=== PATIENT | female | born 1975 | race Caucasian/White ===

== ENCOUNTER 2018-07-14 16:53 | Emergency (ER) | payer OTHER, BC ==
[2018-07-14 18:12] LABS: Absolute Lymphocytes (CBC) 1.1 K/uL (0.7-4.9); Absolute Monocytes 0.6 K/uL (0.1-1.3); Absolute Neutrophil 4.5 K/uL (1.8-8.0); Basophils % 0.5 % (0-1.3); Eosinophils % 1.6 % (0-4.4); Hematocrit 40.8 % (36.0-45.0); Lymphocytes % 16.7 % (15.3-44.8); MPV 8.5 fL (7.6-11.3); Monocytes % 9.1 % (3.3-12.3); RBC Red Blood Cell Count 4.64 M/uL (3.86-4.86)
[2018-07-14] MEDS ORDERED: ONDANSETRON 4 MG/2 ML VIAL ONE (18:23)
[2018-07-14] MEDS ORDERED: FAMOTIDINE 20 MG/2 ML VIAL IV ONE (18:24)
[2018-07-14 18:30] LABS: Albumin 3.8 g/dL (3.4-5.0); Bilirubin Direct 0.1 mg/dL (0-0.2); Bilirubin Total 0.5 mg/dL (0.2-1.0); Magnesium 1.8 mg/dL (1.8-2.4); Potassium 3.3 mmol/L (3.5-5.1); Protein, Total 7.2 g/dL (6.4-8.2)
--- NOTE | 2018-07-14 18:45 | RAD REPORT ---
EXAM DESCRIPTION: RAD - Chest Pa And Lat (2 Views) - 07/14/2018 6:40 pm CLINICAL HISTORY: COUGH Chest pain. COMPARISON: Chest Pa And Lat (2 Views) dated 04/04/2017 FINDINGS: The lungs are clear. The heart is normal in size. No displaced fractures. IMPRESSION: No acute or concerning finding suspected.
--- NOTE | 2018-07-14 19:46 | ER ---
Nurse's Notes [facility] Name: Marlene Estrada Age: 42 yrs Sex: Female : 1975 Arrival Date: 07/14/2018 Time: 16:59 Bed 15 Private MD: Sonny Mora B Diagnosis: Nausea and vomiting;Diarrhea, unspecified;Cough Presentation: 07/14 17:11 Presenting complaint: Patient states: "I've been on antibiotics for about a week for aa5 bronchitis and for the last 24 hours I've been having diarrhea and vomiting". Transition of care: patient was not received from another setting of care. Onset of symptoms was July 13, 2018. Risk Assessment: Do you want to hurt yourself or someone else? Patient reports no desire to harm self or others. Initial Sepsis Screen: Does the patient meet any 2 criteria? No. Patient's initial sepsis screen is negative. Does the patient have a suspected source of infection? No. Patient's initial sepsis screen is negative. Care prior to arrival: None. 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 - Social history:: Smoking status: Patient/guardian denies using tobacco. - Ebola Screening: : No symptoms or risks identified at this time. Screenin:15 Abuse screen: Denies threats or abuse. Denies injuries from another. Nutritional bp screening: No deficits noted. Tuberculosis screening: No symptoms or risk factors identified. Fall Risk None identified. Assessment: 17:15 General: Appears in no apparent distress. comfortable, obese, Behavior is cooperative, bp appropriate for age, anxious. Pain: Denies pain. Neuro: Level of Consciousness is awake, alert, obeys commands, Oriented to person, place, time, situation, Appropriate for age. Cardiovascular: No deficits noted. Respiratory: Airway is patent Respiratory effort is even, unlabored, Respiratory pattern is regular, symmetrical. GI: Abdomen is non-distended, Bowel sounds hyperactive in abdomen diffusely. GI: Reports diarrhea, nausea. : No signs and/or symptoms were reported regarding the genitourinary system. EENT: No deficits noted. Derm: No deficits noted. Musculoskeletal: Circulation, motion, and sensation intact. Range of motion: intact in all extremities. 18:30 Reassessment: UOP AND FECAL SPECIMEN PENDING, VS STABLE ON MONITOR. bp 19:15 Reassessment: Patient appears in no apparent distress at this time. Patient and/or cc3 family updated on plan of care and expected duration. Pain level reassessed. Patient is alert, oriented x 3, equal unlabored respirations, skin warm/dry/pink. Received this female patient from morning shift RN Mohan as a case of vomiting, diarrhea. With IV cannula gauge 22 at the left ACV saline locked. 20:40 Reassessment: Patient appears in no apparent distress at this time. Patient and/or cc3 family updated on plan of care and expected duration. Pain level reassessed. Patient is alert, oriented x 3, equal unlabored respirations, skin warm/dry/pink. TERESO Choudhury discharged the patient home with prescription given. IV cannula removed and patient left ER vitally stable and ambulatory with her family. Patient denies pain at this time. Patient states feeling better. Patient states symptoms have improved. Vital Signs: 17:12 BP 130 / 75; Pulse 107; Resp 18 S; Temp 99.5(O); Pulse Ox 97% on R/A; Weight 92.99 kg aa5 (R); Height 5 ft. 3 in. (160.02 cm) (R); Pain 0/10; 18:30 BP 118 / 66; Pulse 91; Resp 14; Pulse Ox 98% ; bp 19:30 BP 122 / 61; Pulse 99; Resp 18 S; Pulse Ox 98% on R/A; cc3 20:18 BP 115 / 63; Pulse 93; Resp 18 S; Pulse Ox 98% on R/A; cc3 17:12 Body Mass Index 36.31 (92.99 kg, 160.02 cm) aa5 ED Course: 16:59 Patient arrived in ED. mr 16:59 Sonny Mora MD is Private Physician. mr 17:11 Arm band placed on. aa5 17:12 Triage completed. aa5 17:14 Charlie Choudhury PA is PHCP. cp 17:14 Shon Beckford MD is Attending Physician. cp 17:14 Mohan Mandel, RN is Primary Nurse. bp 17:15 Patient has correct armband on for positive identification. Bed in low position. Call bp light in reach. Side rails up X2. Adult w/ patient. 17:56 Radiology exam delayed due to IV insertion attempt and/or patient not having az appropriate IV at this time. 18:04 Initial lab(s) drawn, by mi, sent to lab. Inserted saline lock: 22 gauge in left hj antecubital area, using aseptic technique. Blood collected. 18:05 Lipase Sent. hj 18:05 Hepatic Function Sent. hj 18:05 Creatinine for Radiology Sent. hj 18:05 CBC with Diff Sent. hj 18:05 Basic Metabolic Panel Sent. hj 18:05 Influenza Screen (a \\T\\ B) Sent. hj 18:05 Magnesium Sent. hj 18:40 XRAY Chest Pa And Lat (2 Views): cough since May In Process Unspecified. EDMS 19:43 Urine collected: clean catch specimen, tea colored, stool collected and sent at 1926. ag4 19:46 Stool Culture Sent. ag4 20:40 No provider procedures requiring assistance completed. IV discontinued, intact, cc3 bleeding controlled, No redness/swelling at site. Pressure dressing applied. Administered Medications: 18:30 Drug: Zofran 4 mg Route: IVP; Site: left antecubital; bp 19:06 Follow up: Response: No adverse reaction bp 18:30 Drug: Pepcid 20 mg Route: IVP; Site: left antecubital; bp 19:06 Follow up: Response: No adverse reaction bp 20:25 Drug: Potassium Effervescent Tablet 50 mEq Route: PO; cc3 20:40 Follow up: Response: No adverse reaction cc3 Outcome: 19:46 Discharge ordered by . cp 20:40 Discharged to home ambulatory, with family. cc3 20:40 Condition: stable 20:40 Discharge instructions given to patient, family, Instructed on discharge instructions, follow up and referral plans. medication usage, Demonstrated understanding of instructions, follow-up care, medications, Prescriptions given X 1. 20:52 Patient left the ED. cc3 Signatures: Dispatcher [facility] Abdi Frida Alysha Jordan, RN RN aa5 Juan David Ramirez RN RN hj Charlie Choudhury, TERESO Mohan Torres cp, RN RN bp Kiara Sky cc3 Kelly King, Basil ag4
--- NOTE | 2018-07-14 19:46 | EDPHYS ---
Physician Documentation [facility] Name: Marlene Estrada Age: 42 yrs Sex: Female : 1975 Arrival Date: 07/14/2018 Time: 16:59 Bed 15 Private MD: Sonny Mora B ED Physician Shon Beckford HPI: 07/14 17:56 This 42 yrs old Female presents to ER via Ambulatory with complaints of cp Vomiting/Diarrhea. 17:56 The patient presents to the emergency department with vomiting, that is continuous, cp diarrhea, that is continuous. Onset: The symptoms/episode began/occurred yesterday. 18:00 Possible causes: antibiotics, cephalosporin. cp 18:00 Associated signs and symptoms: Pertinent positives: anorexia, Pertinent negatives: cp abdominal pain, dysuria, fever, GI bleeding. Severity of symptoms: in the emergency department the symptoms are unchanged despite home interventions. 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 - Social history:: Smoking status: Patient/guardian denies using tobacco. - Ebola Screening: : No symptoms or risks identified at this time. ROS: 18:00 Constitutional: Positive for poor PO intake, Negative for body aches, chills, fever. cp 18:00 Eyes: Negative for injury, pain, redness, and discharge. cp 18:00 ENT: Negative for drainage from ear(s), ear pain, sore throat, difficulty swallowing, difficulty handling secretions. 18:00 Cardiovascular: Negative for chest pain, edema, palpitations. 18:00 Respiratory: Negative for cough, shortness of breath, wheezing. 18:00 Abdomen/GI: Positive for nausea, vomiting, and diarrhea, Negative for abdominal pain, constipation, black/tarry stool, rectal bleeding. 18:00 Skin: Negative for cellulitis, rash. 18:00 Neuro: Negative for altered mental status, headache, weakness. 18:00 All other systems are negative. Exam: 18:05 Constitutional: The patient appears in no acute distress, alert, awake, cp non-diaphoretic, non-toxic, well developed, well groomed. 18:05 Head/Face: Normocephalic, atraumatic. cp 18:05 Eyes: Periorbital structures: appear normal, Pupils: equal, round, and reactive to light and accomodation, Extraocular movements: intact throughout, Conjunctiva: normal, no exudate, no injection, Sclera: no appreciated abnormality, Lids and lashes: appear normal, bilaterally. 18:05 ENT: External ear(s): are unremarkable, Ear canal(s): are normal, clear, TM's: bulging, is not appreciated, bilaterally, erythema, is not appreciated, bilaterally, Nose: is normal, Mouth: Lips: moist, Oral mucosa: pink and intact, moist, Posterior pharynx: is normal, airway is patent, no erythema, no exudate. 18:05 Chest/axilla: Inspection: normal, Palpation: is normal, no crepitus, no tenderness. 18:05 Cardiovascular: Rate: tachycardic, Rhythm: regular. 18:05 Respiratory: the patient does not display signs of respiratory distress, Respirations: normal, no use of accessory muscles, no retractions, no splinting, no tachypnea, labored breathing, is not present, Breath sounds: are clear throughout, no decreased breath sounds, no stridor, no wheezing. 18:05 Abdomen/GI: Inspection: abdomen appears normal, Bowel sounds: active, all quadrants, Palpation: abdomen is soft and non-tender, in all quadrants, rebound tenderness, is not appreciated, voluntary guarding, is not appreciated, involuntary guarding, is not appreciated. 18:05 Back: pain, is absent, ROM is normal. 18:05 Skin: cellulitis, is not appreciated, no rash present. 18:05 Neuro: Orientation: to person, place \T\ time. Mentation: is normal, Motor: moves all fours, strength is normal, Sensation: is normal. Vital Signs: 17:12 BP 130 / 75; Pulse 107; Resp 18 S; Temp 99.5(O); Pulse Ox 97% on R/A; Weight 92.99 kg aa5 (R); Height 5 ft. 3 in. (160.02 cm) (R); Pain 0/10; 18:30 BP 118 / 66; Pulse 91; Resp 14; Pulse Ox 98% ; bp 19:30 BP 122 / 61; Pulse 99; Resp 18 S; Pulse Ox 98% on R/A; cc3 20:18 BP 115 / 63; Pulse 93; Resp 18 S; Pulse Ox 98% on R/A; cc3 17:12 Body Mass Index 36.31 (92.99 kg, 160.02 cm) aa5 MDM: 17:14 Patient medically screened. 19:45 Data reviewed: vital signs, nurses notes, lab test result(s), radiologic studies, plain cp films. 19:45 Differential diagnosis: Nonspecific abd pain, gastritis, diverticulitis, viral cp gastroenteritis, gastroenteritis. Test interpretation: by ED physician or midlevel provider: plain radiologic studies. Counseling: I had a detailed discussion with the patient and/or guardian regarding: the historical points, exam findings, and any diagnostic results supporting the discharge/admit diagnosis, lab results, radiology results, to return to the emergency department if symptoms worsen or persist or if there are any questions or concerns that arise at home. Response to treatment: the patient's symptoms have markedly improved after treatment, VSS. Nausea improved and vomiting resolved. Will discharge to home for continued monitoring. 07/14 17:42 Order name: Basic Metabolic Panel; Complete Time: 19:15 07/14 19:16 Interpretation: Normal except: K 3.3; CL 109; GFR 83; CA 8.4. 07/14 17:42 Order name: CBC with Diff; Complete Time: 19:15 07/14 17:42 Order name: Creatinine for Radiology; Complete Time: 19:15 07/14 17:42 Order name: Hepatic Function; Complete Time: 19:15 07/14 17:42 Order name: Lipase; Complete Time: 19:15 07/14 17:42 Order name: Magnesium; Complete Time: 19:15 07/14 17:42 Order name: Influenza Screen (a \T\ B); Complete Time: 19:15 07/14 19:43 Interpretation: Reviewed. 07/14 17:42 Order name: XRAY Chest Pa And Lat (2 Views): cough since May; Complete Time: 19:15 07/14 17:57 Order name: Stool Culture 07/14 17:57 Order name: CDIFF 07/14 19:48 Order name: Urine Dipstick--Ancillary (enter results) 2 07/14 20:31 Order name: Urine --Ancillary (enter results) ag4 07/14 17:42 Order name: IV Saline Lock; Complete Time: 18:05 cp 07/14 17:42 Order name: Labs collected and sent; Complete Time: 18:05 cp 07/14 17:42 Order name: Urine Dipstick-Ancillary (obtain specimen); Complete Time: 20:26 cp 07/14 17:42 Order name: Urine Test (obtain specimen); Complete Time: 20:34 cp Administered Medications: 18:30 Drug: Zofran 4 mg Route: IVP; Site: left antecubital; bp 19:06 Follow up: Response: No adverse reaction bp 18:30 Drug: Pepcid 20 mg Route: IVP; Site: left antecubital; bp 19:06 Follow up: Response: No adverse reaction bp 20:25 Drug: Potassium Effervescent Tablet 50 mEq Route: PO; cc3 20:40 Follow up: Response: No adverse reaction cc3 Disposition: 07/14/18 19:46 Discharged to Home. Impression: Nausea and vomiting, Diarrhea, unspecified, Cough. - Condition is Stable. - Discharge Instructions: Food Choices to Help Relieve Diarrhea, Adult, Diarrhea, Adult, Nausea and Vomiting, Adult, Cough, Adult. - Prescriptions for Zofran 4 mg Oral Tablet - take 1 tablet by ORAL route every 12 hours As needed; 20 tablet. - Medication Reconciliation Form, Thank You Letter, Antibiotic Education, Prescription Opioid Use form. - Follow up: Private Physician; When: 2 - 3 days; Reason: Recheck today's complaints. - Problem is new. - Symptoms have improved. - Notes: stop antibiotic Addendum: 07/18/2018 19:07 Co-signature as Attending Physician, Shon Beckford MD. m a2 Signatures: Dispatcher [employer] EDMS Alysha Doran RN RN aa5 Charlie Choudhury PA PA Mohan Perla RN RN Shon Salazar MD MD ma2 Kiara Sky cc3 Corrections: (The following items were deleted from the chart) 07/14 19:16 19:15 Normal except: K 3.3; CL 109; GFR 83. cp cp 20:52 19:46 07/14/2018 19:46 Discharged to Home. Impression: Nausea and vomiting; Diarrhea, cc3 unspecified; Cough. Condition is Stable. Forms are Medication Reconciliation Form, Thank You Letter, Antibiotic Education, Prescription Opioid Use. Follow up: Private Physician; When: 2 - 3 days; Reason: Recheck today's complaints. Problem is new. Symptoms have improved. cp
[2018-07-14 19:51] LABS: Urine Blood 2+ (NEG); Urine Glucose NEGATIVE (NEG); Urine Protein NEGATIVE (NEG); Urine Specific Gravity 1.025 (1.005-1.030)
[2018-07-14] MEDS ORDERED: POTASSIUM 25 MEQ EFFERV TAB ONE (20:34)
[2018-07-14 21:23] LABS: Urine Specific Gravity 1.025 (1.005-1.030)
== END 2018-07-14 20:52 | disposition home or self-care (01) ==
LOC: ER 16:53
DX: R19.7 Diarrhea, unspecified (principal); R05 Cough
CPT/HCPCS: 36415; 71046; 80048; 80076; 81003; 81025; 83690; 83735; 85025; 87045; 87046; 87493; 87804; 96374; 96375; 99284; J2405

== ENCOUNTER 2020-10-02 14:40 | Emergency (ER) | payer BC ==
--- OUTSIDE RECORDS SUMMARY | 2020-10-02 14:43 | XMS REPORT | Continuity of Care Document ---
:1975 Author Organization [facility] t Address [address] [place] [address] Care Team Providers Name Role Phone Ranjit Marrero MD Attending Clinician Nilsa Mukherjee MA Attending Clinician Unavailable Ke FAIRBANKS, Alva Attending Clinician Unavailable RANJIT MARRERO Attending Clinician Unavailable Sapphire Attending Clinician Unavailable Therapy, Covid Infusion Attending Clinician Unavailable Payers Payer Name Policy Type Policy Effective Date Expiration Date Sour ce Number BLUE CROSS/BLUE [id number] [facility] Medical POS EPO Center [id number] [phone], [place] [address]LJG Problems This patient has no known problems. Allergies, Adverse Reactions, Alerts This patient has no known allergies or adverse reactions. Family History Family Member Diagnosis Comments Start Date Stop Date Source Natural father Autoimmune disease [facility] Natural father Diabetes [facility] Natural father Hypertension [facility] Natural father Thyroid disease [facility] Natural mother Diabetes [facility] Natural mother Hypertension [facility] Natural sister Breast cancer [facility] Social History Social Habit Start Date Stop Date Quantity Comments [facility] Binge Medical [address] Sex Assigned At [facility] Alcohol intake 2020-09-06 2020-09-06 Lifetime [facility] Uvaldo es - 00:00:00 00:00:00 non-drinker Medical Brown arriaza (finding) History SDOH 2020-09-06 2020-09-06 [address] [facility] [address] kes - Alcohol Frequency 00:00:00 00:00:00 Medical Bedias Smoking Status Start Date Stop Date Source Never smoker [facility] M edical Bedias Medications Ordered Filled Start Stop Current Ordering Indication Dosage Frequency Signature Comments Components Source Medication Medication Date Date Medication? Clinician (SIG) Name Name thyroid,por Yes 105mg QD Take [address] (ARMOUR 4-06 mg by [facility] - THYROID 14:11: mouth Medical ORAL) 13 daily. Bedias vitamin Yes QD Take by [facility] St D3-folic 4-06 mouth [facility] - acid 5,000 14:11: daily. Medic al unit- 1 mg 13 Center Tab mv-mn/iron/ Yes 44880V QD Take [facility] St folic 4-06 50,000 [facility] - acid/herb 14:11: Units by Medi tianna 190 13 mouth Center (VITAMIN D3 daily. COMPLETE ORAL) aspirin 81 Yes 81mg QD Take [address] MG EC 4-06 by mouth [facility] - tablet 14:11: daily. Medical [address] [place] [address] [address] [facility] [address] (TOPAMAX) 4-03 [facility] - 50 MG 00:00: Medical tablet 00 Center Vital Signs Vital Name Observation Time Observation Value Comments Source Systolic blood 2020-09-06 14:02:00 130 mm[Hg] [facility] Diastolic blood 2020-09-06 14:02:00 84 mm[Hg] [facility] S t [facility] Heart rate 2020-09-06 14:02:00 97 /min [facility] Body temperature 2020-09-06 14:02:00 36.22 Audra [facility] Respiratory rate 2020-09-06 14:02:00 18 /min [facility] Body height 2020-09-06 14:02:00 160 cm [facility] Body weight 2020-09-06 14:02:00 107.775 kg [facility] BMI 2020-09-06 14:02:00 42.09 kg/m2 [facility] Oxygen saturation in 2020-09-06 14:02:00 96 /min [facility] Arterial blood by Medical Ce ntaudi Pulse oximetry Procedures Procedure Date / Time Performing Clinician Source Performed BASIC METABOLIC PANEL (7) 2020-09-26 12:48:00 Zachariah Marrero [facility] HEPATIC FUNCTION PANEL 2020-09-26 12:48:00 Zachariah Marrero [facility] PROTHROMBIN TIME/INR 2020-09-26 12:48:00 Zachariah Marrero [facility] CBC W/PLT COUNT & AUTO 2020-09-26 12:48:[address] [facility] MR ABDOMEN WITH & WITHOUT 2020-09-26 11:16:00 Zachariah Marrero [facility] HEPATIC FUNCTION PANEL 2020-09-19 16:14:00 Zachariah Marrero [facility] PROTHROMBIN TIME/INR 2020-09-19 16:14:00 Zachariah Marrero [facility] CBC W/PLT COUNT & AUTO 2020-09-19 16:14:[address] [facility] BASIC METABOLIC PANEL (7) 2020-09-19 16:14:00 Zachariah Marrero [facility] PROTHROMBIN TIME/INR 2020-09-12 15:48:00 Zachariah Marrero [facility] BASIC METABOLIC PANEL (7) 2020-09-12 15:48:00 Zachariah Marrero [facility] HEPATIC FUNCTION PANEL 2020-09-12 15:48:00 Zachariah Marrero [facility] CBC W/PLT COUNT & AUTO 2020-09-12 15:48:[address] [facility] CBC W/PLT COUNT & AUTO 2020-09-06 15:54:[address] [facility] COMPREHENSIVE METABOLIC 2020-09-06 15:54:[address] [facility] PANEL [facility] BILIRUBIN, DIRECT 2020-09-06 15:54:00 Zachariah Marrero [facility] PROTHROMBIN TIME/INR 2020-09-06 15:54:00 Zachariah Marrero [facility] HEPATITIS A ANTIBODY, IGG 2020-09-06 15:54:00 Zachariah Marrero [facility] HEPATITIS B SURFACE 2020-09-06 15:54:[address] [facility] ANTIGEN [facility] HEPATITIS B SURFACE 2020-09-06 15:54:00 Zachariah Marrero [facility] ANTIBODY [facility] HEPATITIS B CORE ANTIBODY, 2020-09-06 15:54:00 Zachariah Marrero [facility] TOTAL [facility] HEPATITIS C ANTIBODY 2020-09-06 15:54:00 Zachariah Marrero [facility] IRON, TIBC, % SAT. 2020-09-06 15:54:00 Zachariah Marrero [facility] 2020-09-06 15:54:00 Zachariah Marrero [facility] [id number]-[id number]\, 2020-09-06 15:54:00 Zachariah Marrero [facility] CERULOPLASMIN 2020-09-06 15:54:00 Zachariah Marrero [facility] ANTI-NUCLEAR ANTIBODY 2020-09-06 15:54:[address] [facility] (LUIS) [facility] ACTIN (SMOOTH MUSCLE) 2020-09-06 15:54:[address] [facility] - ANTIBODY, IGG [facility] MITOCHONDRIA M2 ANTIBODY 2020-09-06 15:54:00 Zachariah Marrero [facility] (IGG) [facility] IMMUNOGLOBULIN G (IGG) 2020-09-06 15:54:00 Zachariah Marrero [facility] SOLUBLE LIVER ANTIGEN 2020-09-06 15:54:00 Zach[address] Marrero [facility] ([facility]) [facility] LIVER-KIDNEY MICROSOME AB 2020-09-06 15:54:00 Zachariah Marrero [facility] LUIS TITER AND PATTERN 2020-09-06 15:54:00 Zachariah Marrero [facility] Plan of Care Planned Activity Planned Date Details Comments Source Future Scheduled Test 2021-02-01 INFLUENZA VACCINE C [facility] - 00:00:00 (Season Ended) [code Medical Center = INFLUENZA VACCINE (Season Ended)] Future Scheduled Test 2020-06-03 DEPRESSION SCREENING [facility] - 00:00:00 (12+) [code = [facility] DEPRESSION SCREENING (12+)] Future Scheduled Test 2018 Lipid panel [facility] - 00:00:00 (procedure) [code = [facility] 89507338] Future Scheduled Test 1994 Screening for [facility] - 00:00:00 malignant neoplasm Medical C enter of cervix (procedure) [code = 677374758] Future Scheduled Test 1992 DTAP/TDAP/TD [facility] - 00:00:00 VACCINES (1 - Tdap) [facility] [code = DTAP/TDAP/TD VACCINES (1 - Tdap)] Future Appointment 2020-10-14 Zachariah Marrero MD, [facility] S t [facility] - 10:30:00 [address] [facility] [address], [place] [address] Encounters Start End Encounter Admission Attending Care Care Encounter Source Date/Time Date/Time Type Type Clinicians Facility Department ID 2020-06-29 2020-06-29 Nurse Therapy, [facility] [id number] 10:06:52 18:57:28 Visit [facility] Covid SPECIALTY [id number] Infusion CARE [id number] CENTER AT [id number] [facility] Results Test Description Test Time Test Comments Results Result Comments Source Basic Metabolic Panel 2020-09-27 03:50:00 Test Item Value Reference Range Interpretation Comme nts Glucose (test code = 97 mg/dL 65-139 Non-fasting ) reference inter teresa BUN (test code = 9 mg/dL 7-25 20101004) Creatinine (test code = 0.58 mg/dL 0.5-1.1 20130727) eGFR If NonAfricn Am 110 See_Comment [Autom ated message] (test code = ) The sy stem which generated this result transmitted ref erence range: > OR = 6 0 mL/min/1.73m2. The reference range was not used to interpr et this result as normal/abnormal . eGFR If Africn Am (test 127 See_Comment [Au tomated message] code = ) The system w hich generated this result transmitted ref erence range: > OR = 6 0 mL/min/1.73m2. The reference range was not used to interpr et this result as normal/abnormal . BUN/Creatinine Ratio NOT APPLICABLE See_Comment [Aut omated message] (test code = ) The sy stem which generated this result transmitted ref erence range: 6 - 22 ( calc). The reference r chris was not used to int erpret this result as normal/abnormal . Sodium (test code = 138 mmol/L 135-841 3755580) Potassium, Serum (test 3.9 mmol/L 3.5-5.3 code = 20101019) Chloride (test code = 106 mmol/L 98-306 8440527) Carbon Dioxide, Total 25 mmol/L 20-32 (test code = ) Calcium, Serum (test 9.3 mg/dL 8.6-10.2 code = 20101001) BENI (test code = BENI) FASTING:NOFASTING: NO RAC (test code = RAC) Performing Organization Information: Site ID: [facility] Address: [address] [place] [phone] Director: Vinny Marroquin [facility] [id number] 03:50:00 Test Item Value Reference Range Interpretation Comments Protein, Total, 6.8 g/dL 6.1-8.1 Serum (test code = 20101008) Albumin (test code = 4.3 g/dL 3.6-5.1 ) GLOBULIN (QUEST) 2.5 See_Comment [Automated (test code = message] The ) system which generated this result transmitted reference range : 1.9 - 3.7 g/dL (calc). The reference range was not used to interpret this result as normal/abnormal . Albumin Globulin 1.7 See_Comment [Automated Ratio (test code = message] The ) system which generated this result transmitted reference range : 1.0 - 2.5 (calc ). The reference range was not used to interpr et this result as normal/abnormal . Bilirubin, Total 0.5 mg/dL 0.2-1.2 (test code = 20101010) Bilirubin, Direct 0.1 mg/dL See_Comment [Automate d (test code = message] The 20101022) system which generated this result transmitted reference range : < OR = 0.2. The reference range was not used to interpret this result as normal/abnormal . Bilirubin, Indirect 0.4 See_Comment [Automa gio (test code = message] The ) system which generated this result transmitted reference range : 0.2 - 1.2 mg/dL (calc). The reference range was not used to interpret this result as normal/abnormal . Alkaline 57 U/L 31-125 Phosphatase, S (test code = 6768-6) AST (SGOT) (test 65 U/L 10-35 H code = 20101014) ALT (SGPT) (test 155 U/L 6-29 H code = ) BENI (test code = FASTING:NOFASTING: BENI) NO RAC (test code = Performing RAC) Organization Information: Site ID: [facility]GA [facility]: [facility] Address: [address] [place] [phone] Director: Vinny Marroquin Lab Interpretation Abnormal (test code = 78427-6) [facility] with platelet count + automated [id number] 03:50:00 Test Item Value Reference Range Interpretation Comments WBC (test code = 6.4 See_Comment [Automated ) message] The system which generated this result transmit gio reference range : 3.8 - 10.8 Thousand/uL. Th e reference range was not used to interpret this result as normal/abnormal . RBC (test code = 4.52 See_Comment [Automated 3628) message] The system which generated this result transmit gio reference range : 3.80 - 5.10 Million/uL. The reference range was not used to interpret this result as normal/abnormal . Hemoglobin (test 13.7 g/dL 11.7-15.5 code = ) Hematocrit (test 40.6 % 35-45 code = ) MCV (test code = 89.8 fL 80-213 0584358) MCH (test code = 30.3 pg 27-33 ) MCHC (test code = 33.7 g/dL 32-36 ) RDW (test code = 12.5 % 11-15 ) Platelets (test 314 See_Comment [Automated code = ) message] The system which generated this result transmit gio reference range : 140 - 400 Thousand/uL. Th e reference range was not used to interpret this result as normal/abnormal . MPV (test code = 10.7 fL 7.5-12.5 8849012) # Neutros (test 4506 See_Comment [Automated code = 0931703) message] The system which generated this result transmit gio reference range : 1,500 - 7,800 cells/uL. The reference range was not used to interpret this result as normal/abnormal . # Lymphs (test 1114 See_Comment [Automated code = 731-0) message] The system which generated this result transmit gio reference range : 850 - 3,900 cells/uL. The reference range was not used to interpret this result as normal/abnormal . # Monos (test 640 See_Comment [Automated code = ) message] The system which generated this result transmit gio reference range : 200 - 950 cells/uL. The reference range was not used to interpret this result as normal/abnormal . # Eos (test code 70 See_Comment [Automated = 711-2) message] The system which generated this result transmit gio reference range : 15 - 500 cells/ uL. The reference range was not u sed to interpret th is result as normal/abnormal . # Baso (test code 70 See_Comment [Automate d = 704-7) message] The system which generated this result transmit gio reference range : 0 - 200 cells/uL. The reference range was not u sed to interpret th is result as normal/abnormal . % Neutros (test 70.4 % code = ) % Lymphs (test 17.4 % code = 8707418) % Monos (test 10.0 % code = ) % Eos (test code 1.1 % = 20191222) % Baso (test code 1.1 % = 20191223) BENI (test code = FASTING:NOFASTING: BENI) NO RAC (test code = Performing RAC) Organization Information: [facility]: [facility] Name[facility] Address: [address] [place] [phone] Director: Vinny Marroquin [facility] HospitalProthrombin time/[id number] 03:50:00 Test Item Value Reference Range Interpretation Comments INR (test 0.9 Reference Range code = 4938767) 0.9-1.1Moderate -inte nsity Warfarin Therapy 2.0-3.0Higher-i ntens ity Warfarin Th erapy 3.0-4.0 PT (test code 9.8 See_Comment For additional = 2318113) information, pl ease refer [email or web address] ion.[employer]/ faq/OFU072(This link is being provid ed for informational/e ducat ional purposes only.) [Automa gio message] The sy stem which generated this result transmit gio reference range : 9.0 - 11.5 sec. The reference range was not used to interpret this result as normal/abnormal . BENI (test FASTING:NOFASTING: NO code = BENI) RAC (test Performing code = RAC) Organization Information: [facility] ID: [facility] Address: [address] [place] [phone] Director: Vinny Marroquin [facility] HospitalMR, ABDOMEN, [id number] 17:04:00Referring: JO YAP MDCirrhosis, portal HTN vs fatty liver assessment. Perform elastography.Unlisted Reason for Exam - Click Yes and Enter Reason Below->No [facility] CENTERName: KAREN PIERRE : 1975 Sex: FFINAL REPORT TECHNIQUE: MRI of the abdomen WITHOUT and WITH intr avenous contrast. INDICATION: Portal hypertension. COMPARISON: None. FINDINGS: LOWER THORAX: Unremarkable. LIVER: No hepatic signal abnormality. No focal hepatic lesions. BILIARY: Gallbladder is unremarkable. No biliary ductal dilatation or filling defect.SPLEEN: No splenomegaly. The spleen measures 11.1 cm in length. PANCREAS: No focal masses or ductal dilatation. ADRENALS: No adrenal nodules.KIDNEYS/URETERS: No hydronephrosis or solid mass lesions. PERITONEUM/RETROPERITONEUM: No free fluid.LYMPH NODES: No lymphadenopathy.VESSELS: The main portal vein is patent and measures 1.1 cm in diameter. The hepatic arteries and veins are patent. GI TRACT: No distention or wall thickening. BONES AND SOFT TISSUES: Unremarkable. IMPRESSION: 1.No suspicious liver lesion. 2.The liver stiffness value estimated from MR elastography images was: 2.32 kPa at 60 Hz. The stiffness value has been found to correspond with no liver fibrosis as per the results from a meta analysis published by Ledesma et al. Clin Gastroenterol Hepatol. 2015 Mar; 13(3): 440- 451.e6. 3.The calculated liver fat fraction is 25.1%. 4.No findings to suggest portal hypertension. Signed: Tej Mead MDReport Verified Date/Time: 09/26/2020 17:04:59 Reading Location: [place] [address]Y CT Body Reading Room MR abdomen with/without IV [id number] 17:04:00Interface, External Ris In - 09/26/2020 5:07 PM CDTFINAL REPORT TECHNIQUE: MRI of the abdomen WITHOUT and WITH intravenous contrast. INDICATION: Portal hypertension. COMPARISON:None. FINDINGS: LOWER THORAX: Unremarkable. LIVER: No hepatic signal abnormality. No focal hepatic lesions. BILIARY: Gallbladder is unremarkable. No biliary ductal dilatation or filling defect.SPLEEN:No splenomegaly. The spleen measures 11.1 cm in length. PANCREAS: No focal masses or ductal dilatation. ADRENALS: No adrenal nodules.KIDNEYS/URETERS: No hydronephrosis or solid mass lesions. PERITONEUM/ RETROPERITONEUM: No free fluid.LYMPH NODES: No lymphadenopathy.VESSELS: The main portal vein is patent and measures 1.1 cm in diameter. The hepatic arteries and veins are patent. GI TRACT: No distention or wall thickening. BONES AND SOFT TISSUES: Unremarkable. IMPRESSION: 1.No suspicious liver lesion. 2.The liver stiffness value estimated from MR elastography images was: 2.32 kPa at 60 Hz. The stiffness value has been found to correspond with no liver fibrosis as per the results from a meta analysis published by Ledesma et al. Clin Gastroenterol Hepatol. 2015 Aug; 13(3): 440-451.e6. 3.The calculatedliver fat fraction is 25.1%. 4.No findings to suggest portal hypertension. Signed: Tej Mead MDReport Verified Date/Time: 09/26/2020 17:04:59 Reading Location: [address] Body Reading [facility], [id number] 20:17:00 Test Item Value Reference Range Interpretation Comments Mitochondria M2 Ab <20.0 See Note: U Reference (test code = Range:NEGATIVE: ) < OR = 20.0EQUIVOCAL: 20.1-24.9POSITI V E: > OR = 25.0 BENI (test code = Performing Lab BENI) [facility] [employer] [facility] [address] [place] [address] Tristin Brown MD, PhD, LARISSA [facility] MedicineOLUBLE LIVER ANTIGEN (SLA)2020-09-14 09:43:00 Test Item Value Reference Interpretation Comments Range Soluble Liver <20.1 See Note: U Reference Rang e:NEGATIVE: Antigen (SLA) 0.0-20.0EQU IVOCAL: AutoantibodyY 20.1-24.9POSIT NIKO: (test code = >=25.0 Antibodi es to ) soluble liver a ntigen (SLA) appear to be directed agains t theUGA-suppress or tRNA associated prot ein. These antibodies are highly specificfor aut oimmune hepatitis (AIH) and may, rarely, be the only autoantibodiesd etected in serum from such patients. Antibodies to S LA are most closelyass ociated with AIH type 1 ; the presence of the se antibodies in p atients withcryptogenic hepatitis suggests that t hese patients may tabor ve AIH type 1.Anti-SLA antibodies may be detected in nickie e patients with the primar y biliarycirrhosi s-AIH overlap syndrom e, but not in healthy cont rols. BENI (test code = Performing Lab BENI) [employer] [address] [place] [address] Tristin Brown MD, PhD, LARISSA [facility] HospitalCeruloplasmin2021-04-10 14:26:00 Test Item Value Reference Range Interpretation Comments Ceruloplasmin (test code 33 mg/dL 18-53 = 20190725) BENI (test code = BENI) Performing Lab *TERESA [employer] [facility], [address] [place] [phone] Roberto Almodovar MD [facility] HospitalActin (Smooth Muscle) Antibody, [id number] 23:47:00 Test Item Value Reference Range Interpretation Comments Anti-Smooth <20 See Note: U Reference Range :<20 Muscle Ab NEGATIVE> O R = 20 (test code = POSITIVE Antibo dies ) recognizing act in are the main compon entof smooth muscle antibodies asso ciated withautoimmune liver disease. Actin antibodies aref ound in approximatel y 75% of patients withautoimmune hepatitis (AIH) type 1, approximatel y65% of patients wit h autoimmune cholangitis,brittney roxima tely 30% of pat ients with primary biliarycirrhosi s, and approximately 2 % of healthy people. High values are clos fausto correlated with AIH type 1. BENI (test code Performing Lab = BENI) [employer] [address] [place] [address] Tristin Brown MD, PhD, LARISSA [facility] HospitalLIVER-KIDNEY MICROSOME [id number] 22:44:00 Test Item Value Reference Range Interpretation Comments LKM-1 Antibody <20.0 See Note: U Reference Ran ge:<=20.0 (IgG) (test QRNHHSHU92.1- 24.9 code = EQUIVOCAL>=25.0 4824951) POSITIVE Anti-liver/kidn ey microsomal anti bodies (Anti-LKM-1) we re previously test edby indirect immunofluoresce nce (IF) using rodent liver/kidney substrate.Ident ification of a specific a ntibody target as cytoc hrome P450 IID6 has l edto the current recombi nant based RIAN. An tibodies to this cytochr ome arepresent in approximately 7 0% of patients with a utoimmune hepatitis type 2.This antibody is als o present in approximatel y 10% of patients with h epatitisC infection. BENI (test code Performing Lab = BENI) [facility] [address] [place] [address] Tristin Brown MD, PhD, LARISSA [facility] HospitalANA Titer & [id number] 10:51:00 Test Item Value Reference Range Interpretation Comments LUIS Titer (test 1:640 code = 13558-4) LUIS Pattern Cytoplasmic/Anti-mi Cytoplas destinee (test code = tochondrial staining is pre sent 178) antibodies - see suggestive of comment Anti-mitochondr ial antibodies. If clinically indicated, recommend testi ng for Anti-mitochondr ial antibodies. [facility] HospitalANA TITER AND [id number] 10:51:00 Test Item Value Reference Range Interpretation Comments LUIS TITER :640 (BEAKER) (test code = 1541) LUIS PATTERN Cytoplasmic/Anti-mi Cytoplas destinee (BEAKER) (test tochondrial staining is p resent code = 1781) antibodies - see suggestive of comment Anti-mitochondr ial antibodies. If clinically indicated, recommend testi ng for Anti-mitochondr ial antibodies. Anti-Nuclear Antibody (LUIS)2020-09-07 10:48:00 Test Item Value Reference Range Interpretation Comments LUIS (test code = 57142-5) Negative Negative BENI (test code = BENI) Test performed by IFA method. Lab Interpretation (test Normal code = 21448-2) [facility] HospitalANTI-NUCLEAR ANTIBODY (LUIS)2020-09-07 10:48:00 Test Item Value Reference Range Interpretation Comments ANTI-NUCLEAR ANTIBODY (LUIS) (BEAKER) Negative Negative (test code = 418) Test performed by IFA method.[id number] 17:47:00 Test Item Value Reference Range Interpretation Comments Ferritin (test code = 1590.35 ng/mL 5-275 H 2276-4) BENI (test code = BENI) [employer] Strateg[employer] ID - BS Lab Interpretation (test Abnormal code = 26798-2) [facility]IN[facility] 17:47:00 Test Item Value Reference Range Interpretation Comments FERRITIN (BEAKER) (test code = 1590.35 ng/mL 5.00-275.00 H 361) Creative Strategist ID - BSHepatitis C [id number] 17:11:00 Test Item Value Reference Range Interpretation Comments Hepatitis C Ab (test code = Nonreactive Nonreactive 66737-8) BENI (test code = BENI) Creative Strategist ID - BS Lab Interpretation (test Normal code = 18421-8) [facility]HEPAT[facility]IS C [id number] 17:11:00 Test Item Value Reference Range Interpretation Comments HEPATITIS C ANTIBODY (BEAKER) Nonreactive Nonreactive (test code = 367) Creative Strategist ID - BSHepatitis B surface [id number] 17:10:00 Test Item Value Reference Range Interpretation Comments Hep B S Ab (test code 8.6 See_Comment H [Auto mated = 83385-8) message] The system which generated this result transmit gio reference range : <8.0 mIU/mL. e reference range was not used to interpret this result as normal/abnormal . BENI (test code = BENI) Creative Strategist ID - BS Lab Interpretation Abnormal (test code = 17737-5) [facility] SURFACE [id number] 17:10:00 Test Item Value Reference Range Interpretation Comments HEPATITIS B SURFACE ANTIBODY 8.6 mIU/mL <8.0 H (BEAKER) (test code = 647) Creative Strategist ID - BSHepatitis B surface [id number] 17:09:00 Test Item Value Reference Range Interpretation Comments HBsAg Screen (test code Nonreactive Nonreactive = 5195-3) BENI (test code = BENI) Specimen is considered negative for HBsAg. Lab Interpretation (test Normal code = 71524-2) [facility] HospitalHepatitis [facility] core antibody, [id number] 17:09:00 Test Item Value Reference Range Interpretation Comments Hep B Core Total Ab (test Nonreactive Nonreactive code = 82197-3) BENI (test code = BENI) Creative Strategist ID - BS Lab Interpretation (test Normal code = 53144-6) [facility] HospitalHepatitis A antibody, [id number] 17:09:00 Test Item Value Reference Range Interpretation Comments Hep A IgG (test code = Nonreactive Nonreactive 41286-3) BENI (test code = BENI) Creative Strategist ID - BS Lab Interpretation (test Normal code = 33632-6) [facility]HEP[facility] A ANTIBODY, [id number] 17:09:00 Test Item Value Reference Range Interpretation Comments HEPATITIS A IGG ANTIBODY (BEAKER) Nonreactive Nonreactive (test code = 2797) Creative [employer]ist ID - BSHEPATITIS B SURFACE [id number] 17:09:00 Test Item Value Reference Range Interpretation Comments HEPATITIS B SURFACE ANTIGEN (2) Nonreactive Nonreactive (BEAKER) (test code = 2585) Specimen is considered negative for HBsAg.HEPATITIS B CORE ANTIBODY, TOTAL 2020-09-06 17:09:00 Test Item Value Reference Range Interpretation Comments HEPATITIS B CORE TOTAL ANTIBODY Nonreactive Nonreactive (BEAKER) (test code = 497) Creative Strategist ID - BSComprehensive Metabolic [id number] 16:47:00 Test Item Value Reference Range Interpretation Comments Protein, Total (test 7.9 See_Comment [Autom ated code = 2885-2) message] The system which generated this result transmit gio reference range : 6.0 - 8.3 gm/dL . The reference range was not u sed to interpret th is result as normal/abnormal . Albumin (test code = 4.7 g/dL 3.5-5 75599-5) Alkaline Phosphatase 75 U/L 40-150 (test code = 6768-6) Total Bilirubin (test 0.5 mg/dL 0.2-1.2 code = 1975-2) Sodium (test code = 140 meq/L 498-205 3329-2) Potassium (test code 3.8 meq/L 3.5-5.1 = 2823-3) Chloride (test code = 106 meq/L 98-107 2075-0) CO2 (test code = 24 meq/L 22-29 8-9) BUN (test code = 13 mg/dL 7-21 3094-0) Creatinine (test code 0.78 mg/dL 0.57-1.25 = 2160-0) Glucose (test code = 99 mg/dL 70-105 2345-7) Calcium (test code = 9.8 mg/dL 8.4-10.2 85954-6) AST (test code = 127 U/L 5-34 H 1920-8) ALT (test code = 276 U/L 6-55 H 1742-6) EGFR (test code = 79 mL/min/1.73 [place] [address]-9) NOT ACCURATE CREATININE CLEARANCE IN PREDICTING GLOMERULAR FILTRATION RATE . ESTIMATED GFR I S NOT APPLICABLE FOR DIALYSIS PATIEN TS. BENI (test code = BENI) Creative Strategist ID - BS Lab Interpretation Abnormal (test code = 96743-2) [facility] HospitalBilirubin, [id number] 16:47:00 Test Item Value Reference Range Interpretation Comments Bilirubin, Direct (test code 0.2 mg/dL 0.1-0.5 = 1967-) BENI (test code = BENI) Creative Strategist ID - BS Lab Interpretation (test Normal code = 62843-2) [facility] HospitalCOMPREHENSIVE METABOLIC [id number] 16:47:00 Test Item Value Reference Range Interpretation Comments TOTAL PROTEIN 7.9 gm/dL 6.0-8.3 (BEAKER) (test code = 770) ALBUMIN (BEAKER) 4.7 g/dL 3.5-5.0 (test code = 1145) ALKALINE PHOSPHATASE 75 U/L 40-150 (BEAKER) (test code = 346) BILIRUBIN TOTAL 0.5 mg/dL 0.2-1.2 (BEAKER) (test code = 377) SODIUM (BEAKER) (test 140 meq/L 136-145 code = 381) POTASSIUM (BEAKER) 3.8 meq/L 3.5-5.1 (test code = 379) CHLORIDE (BEAKER) 106 meq/L 98-107 (test code = 382) CO2 (BEAKER) (test 24 meq/L 22-29 code = 355) BLOOD UREA NITROGEN 13 mg/dL 7-21 (BEAKER) (test code = 354) CREATININE (BEAKER) 0.78 mg/dL 0.57-1.25 (test code = 358) GLUCOSE RANDOM 99 mg/dL 70-105 (BEAKER) (test code = 652) CALCIUM (BEAKER) 9.8 mg/dL 8.4-10.2 (test code = 697) AST (SGOT) (BEAKER) 127 U/L 5-34 H (test code = 353) ALT (SGPT) (BEAKER) 276 U/L 6-55 H (test code = 347) EGFR (BEAKER) (test 79 mL/min/1.73 ESTIMA GIO GFR IS code = 1092) sq m NOT ACCURATE CREATININE CLEARANCE IN PREDICTING GLOMERULAR FILTRATION RATE . ESTIMATED GFR I S NOT APPLICABLE FOR DIALYSIS PATIEN TS. Creative Strategist ID - BSBILIRUBIN, [id number] 16:47:00 Test Item Value Reference Range Interpretation Comments BILIRUBIN DIRECT (BEAKER) (test 0.2 mg/dL 0.1-0.5 code = 706) Creative Strategist ID - BSImmunoglobulin G (IgG)2020-09-06 16:45:00 Test Item Value Reference Range Interpretation Comments IgG (test code = 2465-3) 1239 mg/dL 540-1822 BENI (test code = BENI) Creative Strategist ID - BS Lab Interpretation (test Normal code = 82374-5) [facility] HospitalImmunoglobulin M (IgM)2020-09-06 16:45:00 Test Item Value Reference Range Interpretation Comments IgM (test code = 2464-6) 127 mg/dL 22-293 BENI (test code = BENI) Creative Strategist ID - BS Lab Interpretation (test Normal code = 71652-3) [facility] [id number] 16:45:00 Test Item Value Reference Range Interpretation Comments A-1 Antitrypsin (test 144.90 mg/dL 90-200 Specim en code = 1825-9) slightly hemolyzed BENI (test code = BENI) Creative Strategist ID - BS Lab Interpretation Normal (test code = 22680-8) [facility] HospitalIron, TIBC, % sat. (without ferritin)2020-09-06 16:45:00 Test Item Value Reference Range Interpretation Comments Iron (test code = 2498-4) 97.0 ug/dL 40-160 TIBC (test code = 2500-7) 325 ug/dL 250-450 Iron % Saturation (test code 30 % 20-55 = 2502-3) BENI (test code = BENI) Creative Strategist ID - BS Lab Interpretation (test Normal code = 00141-0) [facility] [id number] 16:45:00 Test Item Value Reference Range Interpretation Comments ALPHA-1 ANTITRYPSIN 144.90 mg/dL 90.00-200.00 Specimen slightly (BEAKER) (test code = hemoly zed 502) Creative Strategist ID - BSIMMUNOGLOBULIN G (IGG)2020-09-06 16:45:00 Test Item Value Reference Range Interpretation Comments IMMUNOGLOBULIN G (IGG) 1239 mg/dL See_Comment [Aut omated message] (BEAKER) (test code = The sy stem which 427) generated this result transmit goi reference range : 540-1,822. The reference range was not used to interpret this result as normal/abnormal . Creative Strategist ID - BSIMMUNOGLOBULIN M (IGM)2020-09-06 16:45:00 Test Item Value Reference Range Interpretation Comments IMMUNOGLOBULIN M (IGM) (BEAKER) 127 mg/dL 22-293 (test code = 638) Creative Strategist ID - BSIRON, TIBC, % SAT. (WITHOUT FERRITIN)2020-09-06 16:45:00 Test Item Value Reference Range Interpretation Comments IRON (BEAKER) (test code = 547) 97.0 ug/dL 40.0-160.0 TOTAL IRON BINDING CAPACITY 325 ug/dL 250-450 (BEAKER) (test code = 769) IRON % SATURATION (2) (BEAKER) 30 % 20-55 (test code = 2590) Creative Strategist ID - BSPROTHROMBIN [id number] 16:44:00 Test Item Value Reference Range Interpretation Comments PROTIME (BEAKER) 12.4 seconds 11.9-14.2 (test code = 759) INR (BEAKER) (test 0.95 See_Comment [Automat ed message] code = 370) The system EDMdesigner generated this result transmitted ref erence range: <=5.90. The reference range was not used to int erpret this result as normal/abnormal . Effective 10/29/2018: PT Reference Range ChangeNew: 11.9-14.2 Previous: 11.7- 14.7RECOMMENDED COUMADIN/WARFARIN INR THERAPY RANGESSTANDARD DOSE: 2.0-3.0 Includes: PROPHYLAXIS for venous thrombosis, systemic embolization; TREATMENT for venous thrombosis and/or pulmonary embolus.HIGH RISK: Target INR is2.5-3.5 for patients wiht mechanical heart valves.CBC with platelet count + automated [id number] 16:30:00 Test Item Value Reference Range Interpretation Comments WBC (test code = 6690-2) 7.2 See_Comment [A utomated message] The system EDMdesigner generated this result transmitted ref erence range: 3.5 - 10 .5 K/L. The refe rence range was not u sed to interpret this result as normal/abnor mal. RBC (test code = 789-8) 5.03 See_Comment [Au tomated message] The system EDMdesigner generated this result transmitted ref erence range: 3.93 - 5 .22 M/L. The refe rence range was not u sed to interpret this result as normal/abnor mal. MCHC (test code = 786-4) 33.2 See_Comment [A utomated message] The system EDMdesigner generated this result transmitted ref erence range: 32.2 - 3 5.5 GM/DL. The refe rence range was not u sed to interpret this result as normal/abnor mal. Hematocrit (test code = 44.9 % 34.1-44.9 4544-3) MCV (test code = 787-2) 89.3 fL 79.4-94.8 MCH (test code = 785-6) 29.6 pg 25.6-32.2 RDW (test code = 788-0) 12.8 % 11.7-14.4 Platelets (test code = 328 See_Comment [Aut omated message] 827-3) The system EDMdesigner generated this result transmitted ref erence range: 150 - 45 0 K/CU MM. The referen ce range was not u sed to interpret this result as normal/abnor mal. MPV (test code = 10.3 fL 9.4-12.3 47653-1) nRBC (test code = 413) 0 See_Comment [Aut omated message] The system EDMdesigner generated this result transmitted ref erence range: 0 - 0 /1 00 WBC. The refere nce range was not u sed to interpret this result as normal/abnor mal. % Neutros (test code = 65 % 429) % Lymphs (test code = 20 % 430) % Monos (test code = 12 % 431) % Eos (test code = 432) 2 % % Baso (test code = 437) 1 % # Neutros (test code = 4.68 See_Comment [Aut omated message] 670) The system EDMdesigner generated this result transmitted ref erence range: 1.56 - 6 .13 K/L. The refe rence range was not u sed to interpret this result as normal/abnor mal. # Lymphs (test code = 1.41 See_Comment [Auto mated message] 414) The system EDMdesigner generated this result transmitted ref erence range: 1.18 - 3 .74 K/L. The refe rence range was not u sed to interpret this result as normal/abnor mal. # Monos (test code = 0.90 See_Comment H [Autom ated message] 415) The system EDMdesigner generated this result transmitted ref erence range: 0.24 - 0 .36 K/L. The refe rence range was not u sed to interpret this result as normal/abnor mal. # Eos (test code = 416) 0.11 See_Comment [Au tomated message] The system EDMdesigner generated this result transmitted ref erence range: 0.04 - 0 .36 K/L. The refe rence range was not u sed to interpret this result as normal/abnor mal. # Baso (test code = 417) 0.09 See_Comment H [A utomated message] The system EDMdesigner generated this result transmitted ref erence range: 0.01 - 0 .08 K/L. The refe rence range was not u sed to interpret this result as normal/abnor mal. Immature 1 % 0-1 Granulocytes-Relative (test code = 2801) Lab Interpretation (test Abnormal code = 93663-3) [facility] W/PLT COUNT & AUTO [id number] 16:30:00 Test Item Value Reference Range Interpretation Comments WHITE BLOOD CELL COUNT (BEAKER) 7.2 K/ L 3.5-10.5 (test code = 775) RED BLOOD CELL COUNT (BEAKER) 5.03 M/ L 3.93-5.22 (test code = 761) HEMOGLOBIN (BEAKER) (test code = 14.9 GM/DL 11.2-15.7 410) HEMATOCRIT (BEAKER) (test code = 44.9 % 34.1-44.9 411) MEAN CORPUSCULAR VOLUME (BEAKER) 89.3 fL 79.4-94.8 (test code = 753) MEAN CORPUSCULAR HEMOGLOBIN 29.6 pg 25.6-32.2 (BEAKER) (test code = 751) MEAN CORPUSCULAR HEMOGLOBIN CONC 33.2 GM/DL 32.2-35.5 (BEAKER) (test code = 752) RED CELL DISTRIBUTION WIDTH 12.8 % 11.7-14.4 (BEAKER) (test code = 412) PLATELET COUNT (BEAKER) (test 328 K/CU MM 150-450 code = 756) MEAN PLATELET VOLUME (BEAKER) 10.3 fL 9.4-12.3 (test code = 754) NUCLEATED RED BLOOD CELLS 0 /100 WBC 0-0 (BEAKER) (test code = 413) NEUTROPHILS RELATIVE PERCENT 65 % (BEAKER) (test code = 429) LYMPHOCYTES RELATIVE PERCENT 20 % (BEAKER) (test code = 430) MONOCYTES RELATIVE PERCENT 12 % (BEAKER) (test code = 431) EOSINOPHILS RELATIVE PERCENT 2 % (BEAKER) (test code = 432) BASOPHILS RELATIVE PERCENT 1 % (BEAKER) (test code = 437) NEUTROPHILS ABSOLUTE COUNT 4.68 K/ L 1.56-6.13 (BEAKER) (test code = 670) LYMPHOCYTES ABSOLUTE COUNT 1.41 K/ L 1.18-3.74 (BEAKER) (test code = 414) MONOCYTES ABSOLUTE COUNT (BEAKER) 0.90 K/ L 0.24-0.36 H (test code = 415) EOSINOPHILS ABSOLUTE COUNT 0.11 K/ L 0.04-0.36 (BEAKER) (test code = 416) BASOPHILS ABSOLUTE COUNT (BEAKER) 0.09 K/ L 0.01-0.08 H (test code = 417) IMMATURE GRANULOCYTES-RELATIVE 1 % 0-1 PERCENT (BEAKER) (test code = 2801)
--- NOTE | 2020-10-02 17:31 | RAD REPORT ---
EXAM DESCRIPTION: US - Extremity Venous Uni Ltd - 10/02/2020 5:22 pm CLINICAL HISTORY: SWELLING Arm pain and swelling COMPARISON: No comparisons FINDINGS: Left upper extremity venous system was interrogated with Doppler technique. Thrombus is no ar with noncompressibility in the lower cephalic vein. IMPRESSION: Thrombus is noted within the lower cephalic vein.
--- NOTE | 2020-10-02 17:58 | EDPHYS ---
Physician Documentation [facility] Name: Marlene Estrada Age: 45 yrs Sex: Female : 1975 Arrival Date: 10/02/2020 Time: 14:40 Bed 26 Private MD: ED Physician Shon Beckford HPI: 10/02 20:12 This 45 yrs old Female presents to ER via Ambulatory with complaints of Hand kb Swelling, Arm Swelling. 20:12 The patient or guardian complains of pain, that is acute, swelling, tenderness. The kb complaints affect the left forearm. Context: The problem was sustained at home, resulted from unknown cause. Onset: The symptoms/episode began/occurred 3 day(s) ago. Treatment prior to arrival includes: no previous treatment. Modifying factors: The symptoms are alleviated by nothing. the symptoms are aggravated by nothing. Associated signs and symptoms: Pertinent positives: pain, swelling. Severity of symptoms: At their worst the symptoms were moderate, in the emergency department the symptoms are unchanged. The patient has not experienced similar symptoms in the past. The patient has not recently seen a physician. Pt reports she had an MRI on Saturday and had contrast injected into left wrist. Started having pain and swelling to left forearm on Saturday. Called Dr Mora and was told to come get an US. 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 - Social history:: Smoking status: Patient denies any tobacco usage or history of. ROS: 20:04 Constitutional: Negative for fever, chills, and weight loss, Respiratory: Negative for kb shortness of breath, cough, wheezing, and pleuritic chest pain, Neuro: Negative for headache, weakness, numbness, tingling, and seizure. 20:04 MS/extremity: Positive for ecchymosis, pain, swelling, of the left forearm. Exam: 20:04 Constitutional: This is a well developed, well nourished patient who is awake, alert, kb and in no acute distress. Head/Face: Normocephalic, atraumatic. Cardiovascular: Regular rate and rhythm with a normal S1 and S2. No gallops, murmurs, or rubs. No pulse deficits. Respiratory: Respirations even and unlabored. No increased work of breathing, no retractions or nasal flaring. Neuro: Awake and alert, GCS 15, oriented to person, place, time, and situation. Moves all extremities. Normal gait. 20:04 Musculoskeletal/extremity: Extremities: grossly normal except: noted in the left forearm: pain, swelling, ROM: intact in all extremities, Circulation is intact in all extremities. Sensation intact. 20:04 Skin: Appearance: ecchymosis, noted on the, left forearm, that are mild, of the left forearm. Vital Signs: 15:06 BP 139 / 89; Pulse 95; Resp 18 S; Temp 96.9(TE); Pulse Ox 99% on R/A; Weight 105.23 kg ca1 (R); Height 5 ft. 3 in. (160.02 cm) (R); Pain 2/10; 16:13 BP 107 / 64; Pulse 81; Resp 20 S; Temp 97.4(TE); Pulse Ox 99% on R/A; aa5 15:06 Body Mass Index 41.10 (105.23 kg, 160.02 cm) ca1 MDM: 15:47 Patient medically screened. kb 19:14 Data reviewed: vital signs, nurses notes. Data interpreted: Pulse oximetry: on room air kb is 99 %. Interpretation: normal. Counseling: I had a detailed discussion with the patient and/or guardian regarding: the historical points, exam findings, and any diagnostic results supporting the discharge/admit diagnosis, radiology results, the need for outpatient follow up, a family practitioner, to return to the emergency department if symptoms worsen or persist or if there are any questions or concerns that arise at home. 20:20 ED course: Discussed pt condition and diagnostics with Dr Beckford, recommends kb outpatient treatment with warm compresses and follow up with PCP. . 10/02 15:40 Order name: Extremity Venous Efficient Drivetrains ; Complete Time: 17:42 ca1 Administered Medications: No medications were administered Disposition: 10/02/20 17:58 Discharged to Home. Impression: Acute embolism and thrombosis of superficial veins of left upper extremity - cephalic. - Condition is Stable. - Discharge Instructions: Venous Thromboembolism. - Medication Reconciliation Form, Thank You Letter, Antibiotic Education, Prescription Opioid Use, Work release form form. - Follow up: Emergency Department; When: As needed; Reason: Worsening of condition. Follow up: Private Physician; When: 2 - 3 days; Reason: Recheck today's complaints, Continuance of care, Re-evaluation by your physician. Addendum: 10/05/2020 20:22 Co-signature as Attending Physician, Shon Beckford MD. m a2 Signatures: Dispatcher [employer] EDJudie Hills, YAHIR CHRISTIAN-Shon Lozano MD MD ma2 Dai Maldonado Cheryl RN RN ca1 Corrections: (The following items were deleted from the chart) 10/02 18:45 17:58 10/02/2020 17:58 Discharged to Home. Impression: Acute embolism and thrombosis of eb superficial veins of left upper extremity - cephalic. Condition is Stable. Forms are Medication Reconciliation Form, Thank You Letter, Antibiotic Education, Prescription Opioid Use. Follow up: Emergency Department; When: As needed; Reason: Worsening of condition. Follow up: Private Physician; When: 2 - 3 days; Reason: Recheck today's complaints, Continuance of care, Re-evaluation by your physician. kb 20:07 20:04 MS/extremity: Positive for pain, swelling, of the left forearm, kb kb
--- NOTE | 2020-10-02 17:58 | ER ---
Nurse's Notes [facility] Name: Marlene Estrada Age: 45 yrs Sex: Female : 1975 Arrival Date: 10/02/2020 Time: 14:40 Bed 26 Private MD: Diagnosis: Acute embolism and thrombosis of superficial veins of left upper extremity-cephalic Presentation: 10/02 15:06 Chief complaint: Patient states: MRI done on Saturday09/26/2020, had an IV for the ca1 contrast on the L wrist. Noticed Saturday09/30/2020, L arm is swollen and tender to touch. Yesterday, noticed bruises on the inner left arm. denies injury to the L arm. denies failed IV attempts on the bruises. Coronavirus screen: Client denies travel out of the [place] in the last 14 days. At this time, the client does not indicate any symptoms associated with coronavirus-19. Ebola Screen: Patient negative for fever greater than or equal to 101.5 degrees Fahrenheit, and additional compatible Ebola Virus Disease symptoms Patient denies exposure to infectious person. Patient denies travel to an Ebola-affected area in the 21 days before illness onset. No symptoms or risks identified at this time. Initial Sepsis Screen: Does the patient meet any 2 criteria? No. Patient's initial sepsis screen is negative. Does the patient have a suspected source of infection? No. Patient's initial sepsis screen is negative. Risk Assessment: Do you want to hurt yourself or someone else? Patient reports no desire to harm self or others. Onset of symptoms was October 02, 2020. 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 - Social history:: Smoking status: Patient denies any tobacco usage or history of. Screenin:50 Abuse screen: Denies threats or abuse. Nutritional screening: No deficits noted. aa5 Tuberculosis screening: No symptoms or risk factors identified. Fall Risk None identified. Assessment: 15:50 General: Appears comfortable, Behavior is calm, cooperative. Pain: Complains of pain in aa5 left arm Pain currently is 2 out of 10 on a pain scale. Neuro: Level of Consciousness is awake, alert, obeys commands, Oriented to person, place, time, situation. Cardiovascular: Patient's skin is warm and dry. Respiratory: Airway is patent Respiratory effort is even, unlabored, Respiratory pattern is regular, symmetrical. GI: No signs and/or symptoms were reported involving the gastrointestinal system. : No signs and/or symptoms were reported regarding the genitourinary system. EENT: No signs and/or symptoms were reported regarding the EENT system. Derm: Skin is pink, warm \T\ dry. Musculoskeletal: Range of motion: intact in all extremities. Vital Signs: 15:06 BP 139 / 89; Pulse 95; Resp 18 S; Temp 96.9(TE); Pulse Ox 99% on R/A; Weight 105.23 kg ca1 (R); Height 5 ft. 3 in. (160.02 cm) (R); Pain 2/10; 16:13 BP 107 / 64; Pulse 81; Resp 20 S; Temp 97.4(TE); Pulse Ox 99% on R/A; aa5 15:06 Body Mass Index 41.10 (105.23 kg, 160.02 cm) ca1 ED Course: 14:40 Patient arrived in ED. as 15:09 Triage completed. ca1 15:10 Arm band placed on right wrist. ca1 15:46 Judie Aguirre FNP-C [facility]. kb 15:46 Shon Beckford MD is Attending Physician. kb 15:50 Patient has correct armband on for positive identification. Bed in low position. Call aa5 light in reach. Side rails up X 1. 15:59 Alysha Doran, DOUGLAS is Primary Nurse. aa5 17:23 Extremity Venous Uni Ltd US In Process Unspecified. EDMS 17:25 Ultrasound completed. Patient tolerated well. Notified ATMOSPHERIC TECHNICIAN/PA judie. sg3 18:30 No provider procedures requiring assistance completed. Patient did not have IV access aa5 during this emergency room visit. Administered Medications: No medications were administered Outcome: 17:58 Discharge ordered by . kb 18:30 Discharged to home ambulatory. fm2 18:30 Condition: stable 18:30 Discharge instructions given to patient, Instructed on discharge instructions, follow up and referral plans. Demonstrated understanding of instructions. 18:45 Patient left the ED. eb Signatures: Dispatcher [employer] Judie Henson, VARNISH THINNER-C VARNISH THINNER-Shaila Chang Audri, RN RN aa5 Sharon Cornejo sg3 Dai Maldonado Frofel fm2 Donna Ware RN RN ca1
[2020-10-02 19:15] VITALS: O2SAT 99
[2020-10-02 19:17] VITALS: BP 107/64; TEMP 97.4
== END 2020-10-02 18:45 | disposition home or self-care (01) ==
LOC: ER 14:40
DX: I82.612 Acute embolism and thrombosis of superficial veins of left upper extremity (principal)
CPT/HCPCS: 93971; 99283

== ENCOUNTER 2024-06-04 03:19 | Emergency (ER) | payer OTHER, BC ==
[2024-06-04] MEDS ORDERED: KETOROLAC 30 MG/ML INJ ONE (04:05)
[2024-06-04] MEDS ORDERED: DIPHENHYDRAMINE 50 MG/ML VIAL ONE (04:06)
[2024-06-04] MEDS ORDERED: METOCLOPRAMIDE 10 MG/2mL INJ ONE (04:06)
[2024-06-04] MEDS ORDERED: NA CHLORIDE 0.9% 1,000 ML ONE (04:06)
--- NOTE | 2024-06-04 06:01 | ER ---
Nurse's Notes [facility] Name: Marlene Estrada Age: 48 yrs Sex: Female : 1975 Arrival Date: 06/04/2024 Time: 03:19 Bed 17 Private MD: Diagnosis: Migraine without aura, not intractable;Nausea and vomiting Presentation: 06/04 03:31 Chief complaint: Patient states: Have a bad migraine, I've usually get them if I don't vc1 eat and I have been prepping for a colonoscopy so I think it triggered it. Coronavirus screen: Client denies travel out of the [place] in the last 14 days. At this time, the client does not indicate any symptoms associated with coronavirus-19. Ebola Screen: Patient negative for fever greater than or equal to 101.5 degrees Fahrenheit, and additional compatible Ebola Virus Disease symptoms Patient denies exposure to infectious person. Patient denies travel to an Ebola-affected area in the 21 days before illness onset. No symptoms or risks identified at this time. Initial Sepsis Screen: Does the patient meet any 2 criteria? No. Patient's initial sepsis screen is negative. Does the patient have a suspected source of infection? No. Patient's initial sepsis screen is negative. Risk Assessment: Do you want to hurt yourself or someone else? Patient reports no desire to harm self or others. Onset of symptoms was June 04, 2024 at 00:00. Care prior to arrival: Medication(s) given: qulipta, nurtec,ubrelvy. 03:31 Method Of Arrival: Ambulatory vc1 03:31 Acuity: DELMY 4 vc1 Triage Assessment: 03:41 Headache History: The patient has had previous headaches and this one is similar to vc1 previous episodes. General: Appears in no apparent distress. uncomfortable, obese, well groomed, well developed, well nourished, Behavior is calm, cooperative, appropriate for age. Pain: Complains of pain in forehead Pain radiates to occipital area Pain currently is 9 out of 10 on a pain scale. Quality of pain is described as throbbing, Pain began last night Also complains of nausea, vomiting. EENT: No deficits noted. No signs and/or symptoms were reported regarding the EENT system. Neuro: Level of Consciousness is awake, alert, obeys commands, Oriented to person, place, time, situation, Appropriate for age Reports headache frontal area, occipital area. Cardiovascular: Capillary refill < 3 seconds Patient's skin is warm and dry. Respiratory: Airway is patent Respiratory effort is even, unlabored, Respiratory pattern is regular, symmetrical. GI: Reports nausea, vomiting. : No deficits noted. No signs and/or symptoms were reported regarding the genitourinary system. Derm: Skin is intact, is healthy with good turgor, Skin is dry, Skin is normal, Skin temperature is warm. Musculoskeletal: Circulation, motion, and sensation intact. Range of motion: intact in all extremities. 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 Flu vaccine is not up to date. - Infectious Disease History:: Denies. - Social history:: Smoking status: Patient denies any tobacco usage or history of. - Family history:: not pertinent. Screenin:30 [facility] ED Fall Risk Assessment (Adult) History of falling in the last 3 months, rg5 including since admission No falls in past 3 months (0 pts) Confusion or Disorientation No (0 pts) Intoxicated or Sedated No (0 pts) Impaired Gait No (0 pts) Mobility Assist Device Used No (0 pt) Altered Elimination No (0 pt) Score/Fall Risk Level 0 - 2 = Low Risk Oriented to surroundings, Maintained a safe environment, Hourly rounding (assess needs \T\ fall precautionary measures) done. 03:40 Abuse screen: Denies threats or abuse. Nutritional screening: No deficits noted. vc1 Tuberculosis screening: No symptoms or risk factors identified. Assessment: 03:30 General: Appears uncomfortable, Behavior is calm, cooperative. rg5 03:30 Pain: Complains of pain in head Pain currently is 10 out of 10 on a pain scale. Quality rg5 of pain is described as aching. Neuro: Level of Consciousness is awake, alert, obeys commands, Oriented to person, place, time. Cardiovascular: Denies chest pain, Heart tones S1 S2 Patient's skin is warm and dry. Respiratory: Airway is patent Trachea midline Respiratory effort is even, unlabored, Respiratory pattern is regular, symmetrical. GI: Abdomen is round non-distended, Abd is soft and non tender. : No signs and/or symptoms were reported regarding the genitourinary system. EENT: No signs and/or symptoms were reported regarding the EENT system. Derm: Skin is intact, Skin is dry, Skin is normal, Skin temperature is warm. Musculoskeletal: Circulation, motion, and sensation intact. Range of motion: intact in all extremities. 04:30 Reassessment: Patient and/or family updated on plan of care and expected duration. Pain rg5 level reassessed. Patient is alert, oriented x 3, equal unlabored respirations, skin warm/dry/pink. Patient states symptoms have improved. 05:29 Reassessment: Patient and/or family updated on plan of care and expected duration. Pain rg5 level reassessed. Patient is alert, oriented x 3, equal unlabored respirations, skin warm/dry/pink. Patient states feeling better. Patient states symptoms have improved. Vital Signs: 03:31 BP 117 / 89; Pulse 97; Resp 18; Temp 97.8; Pulse Ox 99% ; Weight 92.99 kg; Height 5 ft. vc1 3 in. ; Pain 9/10; 04:52 BP 123 / 89; Pulse 88; Resp 17; Pulse Ox 100% on R/A; Pain 0/10; rg5 05:29 BP 117 / 73; Pulse 83; Resp 17; Pulse Ox 97% on R/A; Pain 0/10; rg5 03:31 Body Mass Index 36.31 (92.99 kg, 160.02 cm) vc1 03:31 Pain Scale: Adult vc1 04:52 Pain Scale: Adult rg5 05:29 Pain Scale: Adult rg5 Melbourne Coma Score: 21:17 Eye Response: spontaneous(4). Motor Response: obeys commands(6). Verbal Response: sp4 oriented(5). Total: 15. 21:17 Eye Response: spontaneous(4). Motor Response: obeys commands(6). Verbal Response: sp4 oriented(5). Total: 15. ED Course: 03:21 Patient arrived in ED. [email or web address] 03:25 Wesley Weber, DOUGLAS is Primary Nurse. rg5 03:27 Tom Beth MD is Attending Physician. sp4 03:30 Patient has correct armband on for positive identification. Bed in low position. Call rg5 light in reach. Side rails up X 1. Adult w/ patient. Door closed. Noise minimized. Verbal reassurance given. 03:30 No provider procedures requiring assistance completed. rg5 03:38 Triage completed. vc1 03:40 Arm band placed on right wrist. vc1 04:11 Inserted saline lock: 22 gauge in left antecubital area, using aseptic technique. oe Flushed with 10 mL NS. 06:00 Provided Education on: post er care. rg5 06:01 IV discontinued, bleeding controlled, No redness/swelling at site. Pressure dressing rg5 applied. Administered Medications: 04:13 Drug: diphenhydrAMINE IVP 25 mg IVP once Route: IVP; Site: left antecubital; rg5 04:56 Follow up: Response: No adverse reaction; Pain is decreased rg5 04:14 Drug: Ketorolac IVP 30 mg IVP once Route: IVP; Site: left antecubital; rg5 04:56 Follow up: Response: No adverse reaction; Pain is decreased rg5 04:14 Drug: NS 0.9% IV 1000 ml IV at 1000 ml once; to be given as a bolus over 60 minutes rg5 Route: IV; Rate: 1000 ml; Site: left antecubital; 04:55 Follow up: IV Status: Completed infusion; IV Intake: 1000ml rg5 04:16 Drug: metoCLOPramide IVP 20 mg IVP once; over 15 mins Route: IVP; Site: left rg5 antecubital; 04:56 Follow up: Response: No adverse reaction; Pain is decreased rg5 Medication: 03:30 VIS not applicable for this client. rg5 Intake: 04:55 IV: 1000ml; Total: 1000ml. rg5 Outcome: 06:00 Discharge ordered by . sp4 06:14 Discharged to home ambulatory, rg5 06:14 Condition: stable 06:14 Discharge instructions given to patient, family, Instructed on discharge instructions, follow up and referral plans. Demonstrated understanding of instructions, follow-up care, medications, Prescriptions given X 2, 06:14 Patient left the ED. rg5 Signatures: John Mathis Jennifer jj6 Alee Moura, RN RN vc1 Tom Beth MD MD sp4 Wesley Weber RN RN rg5
--- NOTE | 2024-06-04 06:01 | EDPHYS ---
Physician Documentation [facility] Name: Marlene Estrada Age: 48 yrs Sex: Female : 1975 Arrival Date: 06/04/2024 Time: 03:19 Bed 17 Private MD: ED Physician Tom Beth HPI: 06/04 03:27 This 48 yrs old Female presents to ER via Unassigned with complaints of sp4 Headache, Worst Ever. 21:17 48-year-old female presents to the ER with complaint of migraine headache which sp4 precipitated after she started GoLytely for her colonoscopy which is scheduled this morning. . 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 Flu vaccine is not up to date. - Infectious Disease History:: Denies. - Social history:: Smoking status: Patient denies any tobacco usage or history of. - Family history:: not pertinent. ROS: 21:17 Constitutional: Negative for fever, chills, and weight loss, positive for migraine sp4 headache, positive for vomiting 21:17 All other systems are negative, Exam: 21:17 Constitutional: This is a well developed, well nourished patient who is awake, alert, sp4 and in no acute distress. Head/Face: Normocephalic, atraumatic. Eyes: Pupils equal round and reactive to light, extra-ocular motions intact. Lids and lashes normal. Conjunctiva and sclera are not injected. Cornea within normal limits. Periorbital areas with no swelling, redness, or edema. ENT: Nares patent. No nasal discharge, no septal abnormalities noted. Tympanic membranes are normal and external auditory canals are clear. Oropharynx with no redness, swelling, or masses, exudates, or evidence of obstruction, uvula midline. Mucous membranes moist. Neck: Trachea midline, no thyromegaly or masses palpated, and no cervical lymphadenopathy. Supple, full range of motion without nuchal rigidity, or vertebral point tenderness. Chest/axilla: Normal chest wall appearance and motion. Nontender with no deformity. No lesions are appreciated. Cardiovascular: Regular rate and rhythm with a normal S1 and S2. No gallops, murmurs, or rubs. Normal PMI, no JVD. No pulse deficits. Respiratory: Lungs have equal breath sounds bilaterally, clear to auscultation and percussion. No rales, rhonchi or wheezes noted. No increased work of breathing, no retractions or nasal flaring. Abdomen/GI: Soft, with normal bowel sounds. No distension or tympany. No guarding or rebound. No evidence of tenderness throughout. Back: No spinal tenderness. No costovertebral tenderness. Skin: Warm, dry with normal turgor. Normal color with no rashes, no lesions, and no evidence of cellulitis. MS/ Extremity: Pulses equal, no cyanosis. Neurovascular intact. Full, normal range of motion. Neuro: Awake and alert, GCS 15, oriented to person, place, time, and situation. Cranial nerves II-XII grossly intact. Motor strength 5/5 in all extremities. Sensory grossly intact. Psych: Awake, alert, with orientation to person, place and time. Behavior, mood, and affect are within normal limits Vital Signs: 03:31 BP 117 / 89; Pulse 97; Resp 18; Temp 97.8; Pulse Ox 99% ; Weight 92.99 kg; Height 5 ft. vc1 3 in. ; Pain 9/10; 04:52 BP 123 / 89; Pulse 88; Resp 17; Pulse Ox 100% on R/A; Pain 0/10; rg5 05:29 BP 117 / 73; Pulse 83; Resp 17; Pulse Ox 97% on R/A; Pain 0/10; rg5 03:31 Body Mass Index 36.31 (92.99 kg, 160.02 cm) vc1 03:31 Pain Scale: Adult vc1 04:52 Pain Scale: Adult rg5 05:29 Pain Scale: Adult rg5 Carmen Coma Score: 21:17 Eye Response: spontaneous(4). Motor Response: obeys commands(6). Verbal Response: sp4 oriented(5). Total: 15. 21:17 Eye Response: spontaneous(4). Motor Response: obeys commands(6). Verbal Response: sp4 oriented(5). Total: 15. MDM: 03:44 Medical Screening Exam initiated sp4 21:17 Differential diagnosis: cluster headache, migraine, tension headache, vasomotor sp4 headache. Data reviewed: vital signs, nurses notes. ED course: Headache has resolved after medications. Patient stable for discharge home. Will provide prescription for Zofran and Fioricet. 06/04 03:41 Order name: Saline Lock; Complete Time: 04:14 sp4 Administered Medications: 04:13 Drug: diphenhydrAMINE IVP 25 mg IVP once Route: IVP; Site: left antecubital; rg5 04:56 Follow up: Response: No adverse reaction; Pain is decreased rg5 04:14 Drug: Ketorolac IVP 30 mg IVP once Route: IVP; Site: left antecubital; rg5 04:56 Follow up: Response: No adverse reaction; Pain is decreased rg5 04:14 Drug: NS 0.9% IV 1000 ml IV at 1000 ml once; to be given as a bolus over 60 minutes rg5 Route: IV; Rate: 1000 ml; Site: left antecubital; 04:55 Follow up: IV Status: Completed infusion; IV Intake: 1000ml rg5 04:16 Drug: metoCLOPramide IVP 20 mg IVP once; over 15 mins Route: IVP; Site: left rg5 antecubital; 04:56 Follow up: Response: No adverse reaction; Pain is decreased rg5 Disposition Summary: 06/04/24 06:00 Discharge Ordered Notes: Location: Home sp4 Problem: new sp4 Symptoms: have improved sp4 Condition: Stable sp4 Diagnosis - Migraine without aura, not intractable sp4 - Nausea and vomiting sp4 Followup: sp4 - With: Private Physician - When: 7 - 10 days - Reason: Recheck today's complaints Discharge Instructions: - Discharge Summary Sheet sp4 - Migraine Headache, [id number] sp4 Forms: - Patient Portal Instructions sp4 Prescriptions: - Fioricet 50-300-40 mg Oral capsule - take 1 capsule ORAL route every 8 hours PRN migraine; 30 capsule; Refills: 0, sp4 Product Selection Permitted - ondansetron 8 mg Oral Tablet,disintegrating - take 1 tablet ORAL route every 8 hours PRN nausea; 30 tablet; Refills: 0, sp4 Product Selection Permitted Signatures: Alee Moura, RN RN vc1 Tom Beth MD MD sp4 Wesley Weber, RN RN rg5
[2024-06-04 07:14] VITALS: TEMP 97.8
[2024-06-04 07:16] VITALS: BP 117/73; O2SAT 97
== END 2024-06-04 06:14 | disposition home or self-care (01) ==
LOC: ER 03:19
DX: G43.009 Migraine without aura, not intractable, without status migrainosus (principal); R11.2 Nausea with vomiting, unspecified; I10 Essential (primary) hypertension; E78.00 Pure hypercholesterolemia, unspecified
CPT/HCPCS: 96361; 96375; 96374; 99284; J2765; J1200; J7030